=== PATIENT | female | born 1975 | race Caucasian/White ===

== ENCOUNTER 2017-08-08 17:55 | Inpatient (IN) | payer MEDICARE, MEDICAID ==
[2017-08-08] MEDS ORDERED: Iohexol 240 (50 ml) PO ONE (18:24)
--- NOTE | 2017-08-08 18:24 | ED PDOC ---
HPI: Abdomen Time Seen by Provider: 08/08/17 18:09 Chief Complaint (Nursing): Abdominal Pain Chief Complaint (Provider): Abdominal pain Additional Complaint(s): 41 yo F with PMH of HTN, CKD, Hypercholesterolemi, multiple recurrent UTIs and bladder reconstruction (currently with urostomy bag in place), presents to ED with c/o "fecal matter coming out when she surinates." Pt also notes abdominal pain. Symptoms a/w brownish, nonbloody vaginal discharge. Denies fever, chills, dysuria, hematuria, urinary frequency or urgency, vaginal bleeding, chest pain, SOB, n/v/d. PMD: Dr. Macias Past Medical History Reviewed: Historical Data, Nursing Documentation, Vital Signs Vital Signs: Last Vital Signs Temp 97.6 F 08/08/17 17:57 Pulse 99 H 08/08/17 17:57 Resp 16 08/08/17 17:57 BP 136/95 H 08/08/17 17:57 Pulse Ox 100 08/08/17 18:24 - Medical History PMH: Anxiety, Arthritis, HTN, Hypercholesterolemia, Kidney Stones, Chronic Kidney Disease - Surgical History Surgical History: Cholecystectomy Other surgeries: urostomy bag in place, hysterectomy - Family History Family History: States: Unknown Family Hx - Social History Current smoker - smoking cessation education provided: No Alcohol: None Drugs: Denies, Cannabis - Immunization History Hx Tetanus Toxoid Vaccination: Yes Hx Influenza Vaccination: Yes Hx Pneumococcal Vaccination: Yes - Home Medications Home Medications: Ambulatory Orders Medication Instructions Recorded Escitalopram [Lexapro] 20 mg PO DAILY 10/18/15 Furosemide [Lasix] 40 mg PO DAILY 10/18/15 Hydroxychloroquine Sulfate 200 mg PO DAILY 10/18/15 Losartan Potassium 100 mg PO DAILY 10/18/15 MetFORMIN [glucoPHAGE] 1,000 mg PO DAILY 10/18/15 Rosuvastatin Calcium [Crestor] 10 mg PO DAILY 10/18/15 Calcium Carbonate [Caltrate] 600 mg PO BID 08/08/17 Carvedilol [Coreg] 12.5 mg PO Q12H 08/08/17 Cholecalciferol (Vitamin D3) 2,000 unit PO DAILY 08/08/17 [Vitamin D3] Famotidine [Pepcid] 40 mg PO DAILY 08/08/17 Fluticasone/Salmeterol 500/50 1 puff IH TID 08/08/17 [Advair Diskus 500/50] GlipiZIDE [Glucotrol] 5 mg PO BID 08/08/17 Ibuprofen [Motrin Tab] 600 mg PO BID PRN 08/08/17 Mometasone Furoate [Nasonex] 1 spray NING BID PRN 08/08/17 Mycophenolate Mofetil [Cellcept] 1,000 mg PO BID 08/08/17 [id number] Ethyl Esters 1 GM 2 gm PO DAILY 08/08/17 [Lovaza] - Allergies Allergies/Adverse Reactions: Allergies Allergy/AdvReac Type Severity Reaction Status Date / Time No Known Allergies Allergy Verified 01/06/16 20:14 Review of Systems ROS Statement: Except As Marked, All Systems Reviewed And Found Negative Gastrointestinal: Positive for: Abdominal Pain, Diarrhea Physical Exam - Reviewed Nursing Documentation Reviewed: Yes Vital Signs Reviewed: Yes - Physical Exam Appears: Positive for: Non-toxic, No Acute Distress, Uncomfortable Head Exam: Positive for: ATRAUMATIC, NORMAL INSPECTION, NORMOCEPHALIC Skin: Positive for: Normal Color, Warm, DRY Eye Exam: Positive for: EOMI, Normal appearance, PERRL ENT: Positive for: Normal ENT Inspection Neck: Positive for: Normal, Painless ROM Cardiovascular/Chest: Positive for: Regular Rate, Rhythm Respiratory: Positive for: CNT, Normal Breath Sounds Gastrointestinal/Abdominal: Positive for: Bowel Sounds, Soft, Tenderness (Right and LLQ tenderness), Other ((+) urostomy in place RLQ) Back: Positive for: Normal Inspection Extremity: Positive for: Normal ROM Neurologic/Psych: Positive for: Alert, Oriented - ECG O2 Sat by Pulse Oximetry: 100 Medical Decision Making Medical Decision Making: Pt tearful, reports she is in pain IV access established and 4 mg Morphine administered. Diagnostics ordered Case endorsed to MEGHAN Bowling at 1900 pending diagnostic review and re-eval Disposition - Clinical Impression Clinical Impression: Abdominal pain - Patient ED Disposition Is Patient to be Admitted: Transfer of Care - Disposition Disposition: Transfer of Care Disposition Time: 18:35 Condition: STABLE Forms: [employer] (Hebrew)
[2017-08-08] MEDS ORDERED: Morphine 4 MG/ML VIAL ONE ×2 (18:37→21:00)
[2017-08-08 19:06] LABS: BASO % 0.5 % (0.0-2.0); EOS # 0.1 K/uL (0.0-0.7); EOS % 0.6 % (0.0-4.0); HEMATOCRIT 43.3 % (34.0-47.0); LYMPH # 2.4 K/uL (1.0-4.3); LYMPH % 27.2 % (20.0-40.0); MEAN CELL VOLUME 86.2 fl (81.0-99.0); MEAN CORPUSCULAR HEMOGLOBIN 28.6 pg (27.0-31.0); MEAN CORPUSCULAR HGB CONC 33.2 g/dL (33.0-37.0); MEAN PLATELET VOLUME 9.7 fl (7.2-11.7); MONO # 0.7 K/uL (0.0-0.8); MONO % 8.4 % (0.0-10.0); NEUT # 5.7 K/uL (1.8-7.0); NEUT % 63.3 % (50.0-75.0); NRBC % 0.1 % (0.0-0.0); RED CELL DISTRIBUTION WIDTH 13.4 % (11.5-14.5)
[2017-08-08] MEDS ORDERED: Iohexol 240 (50 ml) ONE (19:11)
[2017-08-08 19:13] LABS: RBC URINE 45 /hpf (0-3); URINE BACTERIA MOD (<OCC); URINE BILIRUBIN NEGATIVE (NEGATIVE); URINE BLOOD MODERATE (NEGATIVE); URINE COLOR YELLOW (YELLOW); URINE GLUCOSE (UA) NEG (Normal); URINE KETONE NEGATIVE (NEGATIVE); URINE LEUKOCYTE ESTERASE LARGE Leu/uL (Negative); URINE PROTEIN 100 mg/dL (NEGATIVE); URINE UROBILINOGEN 0.2-1.0 mg/dL (0.2-1.0); WBC URINE 1103 /hpf (0-5)
[2017-08-08 19:17] LABS: ALKALINE PHOSPHATASE 103 U/L (38-126); ALT/SGPT 47 U/L (9-52); AMYLASE 73 U/L (30-110); AST/SGOT 26 U/L (14-36); BILIRUBIN,TOTAL 0.5 mg/dl (0.2-1.3); BLOOD UREA NITROGEN 15 mg/dl (7-17); CALCIUM 9.2 mg/dL (8.4-10.2); CARBON DIOXIDE 23 mmol/L (22-30); CHLORIDE 108 mmol/L (98-107); GFR AFRICAN-AMERICAN > 60; GLUCOSE,RANDOM 129 mg/dL (65-105); LIPASE 105 U/L (23-300); POTASSIUM 3.6 MMOL/L (3.6-5.0); SODIUM 143 mmol/l (132-148); TOTAL PROTEIN 8.3 G/DL (6.3-8.2)
[2017-08-08 19:19] LABS: ALB/GLOB RATIO 1.3 (1.0-2.1)
[2017-08-08] MEDS ORDERED: Iohexol 300 100 ML IJ ONE (20:27)
--- NOTE | 2017-08-08 20:33 | ED PDOC ---
- Laboratory Results Result Diagrams: 08/08/17 19:00 08/08/17 19:00 - ECG O2 Sat by Pulse Oximetry: 100 - Progress ED Course And Treament: 1900 Signed out to me pending CT results. Dr. Macias in ED and states pt. can be admitted to Dr. Mcclure. 2027 On my initial evaluation, pt. requesting more pain meds. In no distress. Pending CT. Morphine 4mg IV ordered. 2237 Pt. reports no relief in pain. Morphine 4mg IV ordered. 2331 CT abd/pelvis w/ IV and PO contrast: Hysterectomy and cystectomy with urinary diversion, no ureteral obstruction; mild right renal pelvic and ureteral mucosal thickening and enhancement suggest infection; possible air in the vagina, a rectovaginal fistula is not visualized. Rocephin 1gm IV ordered. Pt. evaluated by Dr. 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 Pelvic exam showed no stool or vaginal bleeding or lesions. Pt. requesting more pain meds. Morphine 2mg IV ordered. 0140 Case d/w Dr. Mcclure and arrangements made for admission. Medical Decision Making Medical Decision Making: Pt. still with continued pain despite multiple doses of Morphine. Pt. with complicated surgical hx. Pt. recently admitted to [facility] ED for same complaint and symptoms persist. Due to these reasons pt. will be admitted. Disposition - Clinical Impression Clinical Impression: Complicated UTI (urinary tract infection) - POA Present On Arrival: None - Disposition Disposition: Hospitalized as Observation Patient Disposition Time: 01:40 Condition: STABLE
[2017-08-08] MEDS ORDERED: Sodium Chloride 0.9% 1,000 ML IV STA (22:08)
--- NOTE | 2017-08-08 23:32 | CT ---
EXAM: CT Abdomen and Pelvis With Intravenous Contrast EXAM DATE/TIME: 08/08/2017 6:27 PM CLINICAL HISTORY: 42 years old, female; Signs and symptoms; Other: Poss. Rectalvaginal fistula; Prior surgery; Surgery date: 6+ months; Surgery type: Bladder reconstruction, urostomy bag. Hysterectomy. Cholecystectomy; Additional info: Possible rectalvaginal fistula. Sent phy. Doc. TECHNIQUE: Axial computed tomography images of the abdomen and pelvis with intravenous contrast. All CT scans at this facility use one or more dose reduction techniques, viz.: automated exposure control; ma/kV adjustment per patient size (including targeted exams where dose is matched to indication; i.e. head); or iterative reconstruction technique. Coronal and sagittal reformatted images were created and reviewed. CONTRAST: 95 mL of [id number] administered intravenously. COMPARISON: CT ABD AND PELVIS 2013-07-07 23:06 FINDINGS: Lower thorax: The heart size is normal. There is streak artifact from a central line. Lung bases are clear ABDOMEN: Liver: There is fatty infiltration of the liver. Gallbladder and bile ducts: Gallbladder is absent.There is prominence of the common duct. There is mild intrahepatic biliary ductal dilatation or Pancreas: unremarkable Spleen: unremarkable Adrenals: unremarkable Kidneys and ureters: There is bilateral renal scarring. There are nonobstructing renal stones. Stone burden is greatest on the right. There is mild right pelvoureterectasis. There is right renal pelvic and ureteral mucosal thickening and enhancement. There is no mucosal thickening or enhancement in the left renal pelvis or ureter. There is no pelvocaliectasis or ureterectasis. There is urinary diversion. Both ureters can be traced to a fluid filled bowel loop in the pelvis. Stomach and bowel: Stomach is almost empty. There is fluid in the duodenum. Rotation is normal. There are mildly distended small bowel loops in the midabdomen with air-fluid levels. There is an enteral anastomosis in the low pelvis. There is contrast in the distal small bowel. There is no small bowel obstruction. There is contrast in the terminal ileum and cecum. Appendix is unremarkable. There is contrast in the colon to the level of the proximal sigmoid colon. There is air and enteric contents in the sigmoid and rectum. Appendix: See stomach and bowel PELVIS: Bladder: Thick walled bladder seen on the prior study is no longer visualized. Reproductive: There is been interval hysterectomy. There may be a small amount of air in the vagina. ABDOMEN and PELVIS: Intraperitoneal space:There is no free air. Bones/joints: There are no acute osseous abnormalities. Soft tissues: There is a small umbilical hernia. There are postsurgical changes in the lower abdominal wall. Vasculature: Vascular structures are unremarkable. Lymph nodes: There is no pathologic adenopathy. IMPRESSION: Hysterectomy and cystectomy with urinary diversion, no ureteral obstruction; mild right renal pelvic and ureteral mucosal thickening and enhancement suggest infection; possible air in the vagina, a rectovaginal fistula is not visualized Additional findings as described above.
[2017-08-08] MEDS ORDERED: cefTRIAXone IV 1 gm in Dextros 50 ML IVPB STA (23:38)
[2017-08-09] MEDS ORDERED: cefTRIAXone IV 1 gm in Dextros 50 ML IVPB ONE (00:10)
[2017-08-09 07:15] LABS: HEMATOCRIT 37.8 % (34.0-47.0); MEAN CELL VOLUME 86.4 fl (81.0-99.0); MEAN CORPUSCULAR HEMOGLOBIN 29.3 pg (27.0-31.0); RED CELL DISTRIBUTION WIDTH 13.6 % (11.5-14.5); WHITE BLOOD COUNT 6.7 K/uL (4.8-10.8)
[2017-08-09 07:38] LABS: ALB/GLOB RATIO 1.2 (1.0-2.1); ALKALINE PHOSPHATASE 85 U/L (38-126); ALT/SGPT 41 U/L (9-52); AST/SGOT 17 U/L (14-36); BILIRUBIN,TOTAL 0.6 mg/dl (0.2-1.3); BLOOD UREA NITROGEN 14 mg/dl (7-17); CALCIUM 8.7 mg/dL (8.4-10.2); CARBON DIOXIDE 24 mmol/L (22-30); CHLORIDE 110 mmol/L (98-107); CHOLESTEROL 152 mg/dL (0-199); GFR AFRICAN-AMERICAN > 60; GLUCOSE,RANDOM 111 mg/dL (65-105); POTASSIUM 3.5 MMOL/L (3.6-5.0); SODIUM 143 mmol/l (132-148); TOTAL PROTEIN 6.9 G/DL (6.3-8.2)
[2017-08-09 08:06] LABS: THYROID STIMULATING HORMONE 3.09 mIU/ML (0.46-4.68)
--- NOTE | 2017-08-09 09:05 | HP ---
CHIEF COMPLAINT: Abdominal pain. HISTORY OF PRESENT ILLNESS: This is one of many hospital admissions for this 42-year-old female, known case of hypertension, chronic kidney disease, elevated cholesterol, obesity, who had cholecystectomy, hysterectomy and urostomy bag surgery, who recurrently gets urinary tract infection and was recently discharged from [facility], who was having abdominal pain and the patient also complained of stool coming out of vagina, so the patient was brought to the Emergency Room and was admitted for further management. PAST MEDICAL HISTORY: Significant for hypertension, hepatitis, anxiety, elevated cholesterol, kidney stone, chronic kidney disease. PAST SURGICAL HISTORY: Remarkable for urostomy, hysterectomy and cholecystectomy. PERSONAL HISTORY: The patient is currently nonsmoker, nondrinker. No substance abuse. MEDICATIONS: The patient is on Lexapro, Lasix, Plaquenil, losartan, Glucophage, Crestor, Caltrate, Coreg, vitamin D3, Pepcid, Advair, Glucotrol, Motrin, Nasonex, Cellcept and omega-3. ALLERGIES: THE PATIENT IS NOT ALLERGIC TO ANY MEDICATION. FAMILY HISTORY: Noncontributory. REVIEW OF SYSTEMS: Positive for abdominal pain and stool coming out from vagina. Review of systems otherwise is negative for headache, dizziness, syncope, loss of consciousness, chest pain, shortness of breath, nausea, vomiting, diarrhea, constipation, any new joint or extremity pain. Review of systems of all other organ system is unremarkable. PHYSICAL EXAMINATION: GENERAL: Well-built, well-nourished, overweight 42-year-old female, in no acute distress. VITAL SIGNS: Temperature 98.5, pulse 80, respirations 19, blood pressure 125/82, saturation 95%. HEENT: Pupils reacting to light. No JVD. No thyromegaly. No lymphadenopathy. No nystagmus. Normocephalic, atraumatic skull. HEART: S1 and S2. Normal and regular. No significant murmur, gallop or rub is heard. LUNGS: Shows good bilateral air exchange. No rales or rhonchi. ABDOMEN: The patient has right lower quadrant colostomy bag, which is functioning fine. Abdomen has also multiple scars. Abdomen otherwise is soft, nontender. No organomegaly. No fluid. No sign of acute abdomen. No guarding. No rigidity. No rebound. Bowel sounds are plus and normal. No sign of stool coming out of vagina at this time. According to nursing staff, the patient had normal bowel movement and stool was coming out of anal canal, but nothing from vagina. EXTREMITIES: No edema. No calf swelling. No tenderness. No acute ischemia. CENTRAL NERVOUS SYSTEM: The patient is alert, awake, oriented x3. There is no sign of any acute gross focal motor or sensory neurological deficit. DIAGNOSTIC DATA: WBC 9, hemoglobin 14.4, hematocrit 43.3, platelets 242. Sodium 143, potassium 3.8, chloride 108, bicarb 23, BUN 15, creatinine 0.9. SMA-12 is essentially unremarkable. Urinalysis shows large leukocytes, multiple bacteria. EKG does not reveal any acute ST-T changes. Abdominal CAT scan did not reveal any acute evidence of fistula. ADMITTING IMPRESSION: Recurrent urinary tract infections, status post urostomy, hysterectomy and cholecystectomy, anxiety, hypertension, diabetes type 2 with controlled blood sugar, elevated cholesterol, obesity with body mass index of 35. PLAN: As ordered. Case and plan discussed with the patient. Charli Mcclure MD
[2017-08-09] MEDS: Fluticasone-Salmeterol 500-50mcg Diskus IH SCH ×2 (09:11→17:13)
[2017-08-09] MEDS: Enoxaparin 40 mg Syringe SC SCH (09:12)
[2017-08-09] MEDS: Omega-3-Acid Ethyl Esters 1 GM Cap PO SCH (09:13)
[2017-08-09] MEDS: Cholecalciferol 1,000 INTLU TAB PO SCH (09:15)
[2017-08-09] MEDS: cefTRIAXone IV 1 gm in Dextros 50 ML IVPB SCH (12:00)
[2017-08-09] MEDS: Lactobacillus Acidophilus 500 MU Cap PO SCH (17:16)
--- NOTE | 2017-08-09 18:27 | CARD ---
APPROVED REPORT EKG Measurement Heart [id number] <Conclusion> Normal sinus rhythm Normal ECG
--- NOTE | 2017-08-10 08:51 | PN ---
DATE: 08/10/2017 SUBJECTIVE: The patient is seen and examined. Interim events noted. Consults noted and appreciated. Pain Management intervention noted and appreciated. Urology followup, consult is pending. The patient feels better. Pain is controlled. No chest pain. No shortness of breath. PHYSICAL EXAMINATION: GENERAL: The patient is in no acute distress. VITAL SIGNS: Stable. HEART: S1 and S2, normal and regular. LUNGS: Good bilateral air exchange. ABDOMEN: Urostomy tube is in good position and functioning. Abdomen is otherwise soft, nontender. No organomegaly. No fluid. Bowel sounds are plus. No sign of acute abdomen. No guarding. No rigidity. No rebound. EXTREMITIES: No edema. No calf swelling. No tenderness. No acute ischemia. CENTRAL NERVOUS SYSTEM: Essentially unchanged. GENITOURINARY: According to nursing staff, the patient has no stool coming out of vaginal vault. The patient was examined by nurse, Justa Alva. Despite the patient's repeated claim of having stools from vaginal vault, there is no objective evidence of same. DIAGNOSTIC DATA: Available diagnostic data reviewed. ASSESSMENT AND PLAN: Overall, the patient's general medical condition is stable. Plan as ordered. Charli Mcclure MD
[2017-08-10] MEDS: Fluticasone-Salmeterol 500-50mcg Diskus IH SCH ×2 (08:59→17:12)
[2017-08-10] MEDS: Lactobacillus Acidophilus 500 MU Cap PO SCH ×2 (09:00→17:16)
[2017-08-10] MEDS: Omega-3-Acid Ethyl Esters 1 GM Cap PO SCH (09:04)
[2017-08-10] MEDS: Enoxaparin 40 mg Syringe SC SCH (09:05)
[2017-08-10] MEDS: cefTRIAXone IV 1 gm in Dextros 50 ML IVPB SCH (09:08)
[2017-08-10] MEDS: Cholecalciferol 1,000 INTLU TAB PO SCH (09:08)
--- NOTE | 2017-08-11 02:58 | CON ---
DATE: 08/10/2017 urinary diversion with diverting ileostomy done in 09/2016 who now has a complicated UTI. Patient claims that post the urinary diversion, she developed seeing stool in the vagina; however, during this admission, the nurses have not seen any stool in the vagina as of yet. Her abdominopelvic CT scan done on 08/08/2017 showed an absent gallbladder, prominence of the common bile duct, and mild intrahepatic biliary ductal dilatation. Pancreas, spleen, adrenals were all unremarkable. Her kidneys and ureters showed bilateral renal scarring. There are non-obstructing renal stones. Stone burden is greatest on the right. There is mild right pyeloureterectasis. There is right renal pelvic and ureteral mucosal thickening and enhancement. There is no mucosal thickening or enhancement in the left renal pelvis or ureter. There is no pelvocaliectasis or ureterectasis. There is urinary diversion. Both ureters can be traced with fluid filled bowel loop in the pelvis. The stomach and bowel showed an almost empty stomach. There was fluid in the duodenum. Rotation was normal. There are mildly distended bowel loops in the mid abdomen with air-fluid levels. There is an antral anastomosis in the lower pelvis. There is contrast in the distal small bowel. There is no small bowel obstruction. There is contrast in the terminal ileum and cecum. Appendix is unremarkable. There is contrast in the colon to the level of the proximal sigmoid colon. There is air and enteric contents in the sigmoid and rectum. Thick gallbladder seen on prior study was no longer visualized. Reproductive system, status post internal hysterectomy. There is a small amount of air in the vagina. Intraperitoneal space, no free air. Along the joints, no acute osseous abnormalities. Lymph nodes, no pathology. Soft tissues, there is a small umbilical hernia. Post surgical changes in the lower abdominal wall. Diagnostic impression to the study was hysterectomy and cystectomy with urinary diversion, no ureteral obstruction, mild right renal pelvic and ureteral mucosal thickening and enhancement, suggest infection. Possible air in the vagina. Rectovaginal fistula is not visualized and non-obstructing kidney stones, pertinent greatest on the right. ADDITIONAL MEDICAL HISTORY: Patient has hypertension and diabetes mellitus in addition to SLE and she has had four surgeries includin. Laparoscopic cholecystectomy. 2. Hysterectomy in 2014. 3. Bladder replacement surgery with colon in 2014. 4. Urinary diverting ileostomy in 09/2016. All surgeries seem to have been done at [facility]. The patient has also been seen multiple times at [facility], [facility], [facility], [facility], and [facility] requiring pain medication during these hospitalizations. The patient is currently being treated for a complicated UTI. A Urinalysis on 08/08/2017 was positive for rbc's 45, positive for wbc's 1103, and positive for moderate bacteria. pH is 7.0 and specific gravity 1.012. Patient at the bedside today seem to be relatively comfortable and her main complaint was seeing stool in the vagina. Patient denies any history of any pregnancies.. She is 0, para 0. PHYSICAL EXAMINATION: GENERAL: Today, she is a well-developed, well-nourished, slightly obese female, she is alert, she is oriented. HEENT: Grossly within normal limits. NECK: Supple. Thyroid not palpable. ABDOMEN: Soft, nondistended, currently nontender. LABORATORY EVALUATION: On 08/09/2017 showed a CBC with a WBC count of 6.7, hemoglobin of 12.8, hematocrit of 37.8, and a platelet count of 173,000. Her chem profile shows a sodium of 143, potassium 3.5, chloride 110, CO2 of 24, BUN and creatinine of 14 and 0.7 respectively with a GFR of greater than 60. Random glucose is 111. Calcium is 8.7. Otherwise, a relatively normal comprehensive metabolic profile. Urinalysis on 08/08/2017 showed multiple species and suggest repeat specimen. UROLOGIC DIAGNOSES: 1. Complicated urinary tract infection. 2. Bilateral non-obstructing kidney stones. PLAN: 1. To just treat her complicated urinary tract infection at this time. 2. Suggest the patient followup at [facility] with her surgeons regarding her visualization of stool in the vagina and urinary diversion and kidney stones. Ernie Murdock MD
[2017-08-11 07:24] LABS: HEMATOCRIT 38.1 % (34.0-47.0); MEAN CELL VOLUME 85.9 fl (81.0-99.0); MEAN CORPUSCULAR HEMOGLOBIN 29.3 pg (27.0-31.0); MEAN CORPUSCULAR HGB CONC 34.1 g/dL (33.0-37.0); RED CELL DISTRIBUTION WIDTH 13.5 % (11.5-14.5)
[2017-08-11 07:49] LABS: ALB/GLOB RATIO 1.2 (1.0-2.1); ALKALINE PHOSPHATASE 80 U/L (38-126); ALT/SGPT 29 U/L (9-52); AST/SGOT 15 U/L (14-36); BILIRUBIN,TOTAL 0.4 mg/dl (0.2-1.3); BLOOD UREA NITROGEN 13 mg/dl (7-17); CALCIUM 8.9 mg/dL (8.4-10.2); CARBON DIOXIDE 29 mmol/L (22-30); CHLORIDE 104 mmol/L (98-107); GFR AFRICAN-AMERICAN > 60; GLUCOSE,RANDOM 113 mg/dL (65-105); POTASSIUM 2.8 MMOL/L (3.6-5.0); SODIUM 140 mmol/l (132-148); TOTAL PROTEIN 6.8 G/DL (6.3-8.2)
[2017-08-11] MEDS: Omega-3-Acid Ethyl Esters 1 GM Cap PO SCH (08:58)
[2017-08-11] MEDS: Fluticasone-Salmeterol 500-50mcg Diskus IH SCH ×3 (08:58→17:23)
[2017-08-11] MEDS: Enoxaparin 40 mg Syringe SC SCH (08:59)
[2017-08-11] MEDS: Cholecalciferol 1,000 INTLU TAB PO SCH (09:02)
[2017-08-11] MEDS: Lactobacillus Acidophilus 500 MU Cap PO SCH ×2 (09:06→17:23)
[2017-08-11] MEDS: cefTRIAXone IV 1 gm in Dextros 50 ML IVPB SCH (11:27)
[2017-08-12 06:35] LABS: ALB/GLOB RATIO 1.1 (1.0-2.1); ALKALINE PHOSPHATASE 83 U/L (38-126); ALT/SGPT 28 U/L (9-52); AST/SGOT 15 U/L (14-36); BILIRUBIN,TOTAL 0.3 mg/dl (0.2-1.3); BLOOD UREA NITROGEN 15 mg/dl (7-17); CALCIUM 9.1 mg/dL (8.4-10.2); CARBON DIOXIDE 30 mmol/L (22-30); CHLORIDE 105 mmol/L (98-107); GFR AFRICAN-AMERICAN > 60; GLUCOSE,RANDOM 115 mg/dL (65-105); POTASSIUM 3.1 MMOL/L (3.6-5.0); SODIUM 145 mmol/l (132-148)
[2017-08-12 06:43] LABS: MEAN CELL VOLUME 86.1 fl (81.0-99.0); MEAN CORPUSCULAR HGB CONC 33.7 g/dL (33.0-37.0); RED CELL DISTRIBUTION WIDTH 13.7 % (11.5-14.5); WHITE BLOOD COUNT 5.9 K/uL (4.8-10.8)
--- NOTE | 2017-08-12 09:03 | PN ---
DATE: 08/12/2017 SUBJECTIVE: The patient is seen and examined. Interim events noted. The patient remains in regular medical floor. The patient feels okay. The patient complains of passing stool through vagina, but there is no objective evidence of same. Every bowel movement observed by nurses came through rectum. PHYSICAL EXAMINATION: GENERAL: The patient is in no acute distress. VITAL SIGNS: Stable. HEART: S1 and S2, normal and regular. LUNGS: Good bilateral air exchange. ABDOMEN: Soft, nontender. EXTREMITIES: No edema. No calf swelling. No tenderness. No acute ischemia. CENTRAL NERVOUS SYSTEM: Essentially unchanged. DIAGNOSTIC DATA: Available diagnostic data reviewed. ASSESSMENT AND PLAN: Overall, the patient's general medical condition is stable. Urine culture shows contamination. Plan as ordered. Charli Mcclure MD
--- NOTE | 2017-08-12 09:13 | PN ---
DATE: 08/11/2017 SUBJECTIVE: Patient seen and examined. Interim events noted. Consults noted and appreciated. Urology followup and intervention noted and appreciated. Patient remains in regular medical floor. Patient feels okay. Pain is adequately controlled, now taking morphine every 6 hours. Denies any other new complaint of chest pain or shortness of breath. Did not complain of vaginal stool discharge today. PHYSICAL EXAMINATION: GENERAL: Patient is in no acute distress. VITAL SIGNS: Stable. HEART: S1 and S2, normal and regular. LUNGS: Good bilateral air exchange. ABDOMEN: Soft, nontender. Does not reveal any acute abdomen. No guarding. No rigidity. No rebound. Urostomy tube is in good position and functioning. EXTREMITIES: No edema. No calf swelling. No tenderness. No acute ischemia. CENTRAL NERVOUS SYSTEM: Essentially unchanged. DIAGNOSTIC DATA: Available diagnostic data reviewed. ASSESSMENT AND PLAN: Overall, patient's general medical condition is stable. Plan as ordered. Charli Mcclure MD
[2017-08-12] MEDS: Omega-3-Acid Ethyl Esters 1 GM Cap PO SCH (09:54)
[2017-08-12] MEDS: Fluticasone-Salmeterol 500-50mcg Diskus IH SCH ×2 (09:54→16:19)
[2017-08-12] MEDS: Lactobacillus Acidophilus 500 MU Cap PO SCH ×2 (09:56→16:23)
--- NOTE | 2017-08-12 09:57 | PQF GENQUE ---
This form is a permanent part of the medical record 08/12/17 Dr. Mcclure, H&P with documentation of Chronic Kidney Disease ( no stage documented) . BUN 13 -15, Creatinine 0.9-0.7, GFR >60. Please clarify status of this condition: Patient has condition Condition was ruled out Please provide corresponding diagnosis for patient's clinical picture and associated treatment Patient had condition which is now resolved Other (please specify) Clinically unable to determine Unknown Clarification of your documentation is requested to better reflect the severity of illness and intensity of treatment of your patient. Indicators present [] Specify: [] [] Specify: [] [] Specify: [] [] Specify: [] Location in the medical record that reflects the above clinical findings: [] Treatment Provided: [] PHYSICIAN'S RESPONSE Based on your medical judgment of the clinical indicators outlined above please clarify the following: [] Practitioner response [] If unable to determine, please check the box, sign and date. Present On Admission (POA) Indicator: [] Present at the time of admission [] Not present at the time of admission [] Clinically Undetermined In responding to this query, please exercise your independent professional judgment. The fact that a question is asked does not imply that any particular answer is desired or expected. Thank you for your clarification on this documentation. If you have any questions please call:[phone] * Thank you, Aysha Rose RN [facility]
[2017-08-12] MEDS: Enoxaparin 40 mg Syringe SC SCH (09:59)
[2017-08-12] MEDS: Cholecalciferol 1,000 INTLU TAB PO SCH (10:00)
[2017-08-12] MEDS: cefTRIAXone IV 1 gm in Dextros 50 ML IVPB SCH (10:53)
--- NOTE | 2017-08-12 11:24 | CP.PCM.CON ---
History of Present Illness - History of Present Illness History of Present Illness: 41 yo F with PMH of HTN, CKD, Hypercholesterolemi, multiple recurrent UTIs and bladder reconstruction (currently with urostomy bag in place), presents to ED with c/o "fecal matter coming out when she surinates." Pt also notes abdominal pain. Symptoms a/w brownish, nonbloody vaginal discharge. Denies fever, chills, dysuria, hematuria, urinary frequency or urgency, vaginal bleeding, chest pain, SOB, n/v/d. multiple admissions with esbl + E coli in 2016 currently afebrile - Medical History PMH: Anxiety, Arthritis, HTN, Hypercholesterolemia, Kidney Stones, Chronic Kidney Disease - Surgical History Surgical History: Cholecystectomy Other surgeries: urostomy bag in place, hysterectomy Past Patient History - Infectious Disease Hx of Infectious Diseases: None - Past Medical History & Family History Past Medical History?: Yes - Past Social History Smoking Status: Never Smoked - CARDIAC Hx Hypercholesterolemia: Yes Hx Hypertension: Yes - PULMONARY Hx Respiratory Disorders: No - NEUROLOGICAL Hx Neurological Disorder: Yes - HEENT Hx HEENT Problems: No - RENAL Hx Chronic Kidney Disease: Yes Other/Comment: urostomy tube in place - ENDOCRINE/METABOLIC Hx Endocrine Disorders: Yes Hx Systemic Lupus Erythematosus: Yes - HEMATOLOGICAL/ONCOLOGICAL Hx Blood Disorders: No - INTEGUMENTARY Hx Dermatological Problems: No - MUSCULOSKELETAL/RHEUMATOLOGICAL Hx Musculoskeletal Disorders: Yes Hx Arthritis: Yes Hx Falls: No - GASTROINTESTINAL Hx Gastrointestinal Disorders: No - GENITOURINARY/GYNECOLOGICAL Hx Genitourinary Disorders: Yes Hx Urinary Tract Infection: Yes Other/Comment: bladder reconstruction with urostomy bag currently in place - PSYCHIATRIC Hx Psychophysiologic Disorder: Yes Hx Anxiety: Yes Hx Substance Use: No - SURGICAL HISTORY Hx Cholecystectomy: Yes Other/Comment: bladder reconstruction - ANESTHESIA Hx Anesthesia: Yes Hx Anesthesia Reactions: No Hx Malignant Hyperthermia: No Meds Allergies/Adverse Reactions: Allergies Allergy/AdvReac Type Severity Reaction Status Date / Time No Known Allergies Allergy Verified 01/06/16 20:14 - Medications Medications: Current Medications Acetaminophen (Tylenol 325mg Tab) 650 mg PO Q4 PRN PRN Reason: Pain, moderate (4-7) Atorvastatin Calcium (Lipitor) 20 mg PO HS [facility] Last Admin: 08/11/17 21:34 Dose: 20 mg Calcium Carbonate (Oscal) 500 mg PO BID [facility] Last Admin: 08/12/17 09:59 Dose: 500 mg Carvedilol (Coreg) 12.5 mg PO Q12 [facility] Last Admin: 08/12/17 09:56 Dose: 12.5 mg Cholecalciferol (Vitamin D) 2,000 intlu PO DAILY [facility] Last Admin: 08/12/17 10:00 Dose: 2,000 intlu Enoxaparin Sodium (Lovenox) 40 mg SC DAILY [facility] PRN Reason: Protocol Last Admin: 08/12/17 09:59 Dose: 40 mg Escitalopram Oxalate (Lexapro) 20 mg PO HS [facility] Last Admin: 08/11/17 21:34 Dose: 20 mg Famotidine (Pepcid) 40 mg PO DAILY [facility] Last Admin: 08/12/17 09:55 Dose: 40 mg Fluticasone Propionate (Flonase) 1 spr NING BID PRN PRN Reason: Allergy symptoms Furosemide (Lasix) 40 mg PO DAILY [facility] Last Admin: 08/12/17 09:58 Dose: 40 mg Glipizide (Glucotrol) 5 mg PO BID [facility] Last Admin: 08/12/17 09:54 Dose: 5 mg Hydroxychloroquine Sulfate (Plaquenil) 200 mg PO BID [facility] Last Admin: 08/12/17 10:00 Dose: 200 mg Ceftriaxone Sodium (Rocephin Iv 1 Gm Duplex) 50 mls @ 50 mls/hr IVPB DAILY [facility] PRN Reason: Protocol Last Admin: 08/12/17 10:53 Dose: 50 mls/hr Ibuprofen (Motrin Tab) 600 mg PO BID PRN PRN Reason: Pain, moderate (4-7) Lactobacillus Acidophilus (Bacid Acidophilus) 1 cap PO BID [facility] Last Admin: 08/12/17 09:56 Dose: 1 cap Losartan Potassium (Cozaar) 100 mg PO DAILY [facility] Last Admin: 08/12/17 09:57 Dose: 100 mg Metformin HCl (Glucophage) 1,000 mg PO DAILY [facility] Last Admin: 08/12/17 09:58 Dose: 1,000 mg Morphine Sulfate (Morphine) 2 mg IVP Q6 PRN PRN Reason: Pain, severe (8-10) Last Admin: 08/12/17 06:21 Dose: 2 mg Mycophenolate Mofetil (Cellcept Cap) 1,000 mg PO BID [facility] Last Admin: 08/12/17 09:56 Dose: 1,000 mg Wwnwn-5-Vhil Ethyl Esters (Lovaza) 2 gm PO DAILY [facility] Last Admin: 08/12/17 09:54 Dose: 2 gm Fluticasone/Salmeterol (Advair Diskus 500/50) 1 puff IH BID [facility] Last Admin: 08/12/17 09:54 Dose: Not Given Results - Vital Signs Recent Vital Signs: Last Vital Signs Temp 97.8 F 08/12/17 09:00 Pulse 68 08/12/17 09:57 Resp 20 08/12/17 09:00 BP 100/69 08/12/17 09:58 Pulse Ox 96 08/12/17 09:00 - Labs Result Diagrams: 08/12/17 06:00 08/12/17 06:00 Labs: Laboratory Results - last 24 hr 08/11/17 08/11/17 08/12/17 16:08 22:27 06:00 WBC 5.9 RBC 4.53 Hgb 13.1 Hct 39.0 MCV 86.1 MCH 29.0 MCHC 33.7 RDW 13.7 Plt Count 192 Sodium Potassium Chloride Carbon Dioxide Anion Gap BUN Creatinine Est GFR ( Amer) Est GFR (Non-Af Amer) POC Glucose (mg/dL) 141 H 114 H Random Glucose Calcium Total Bilirubin AST ALT Alkaline Phosphatase Total Protein Albumin Globulin Albumin/Globulin Ratio 08/12/17 08/12/17 08/12/17 06:00 06:29 11:09 WBC RBC Hgb Hct MCV MCH MCHC RDW Plt Count Sodium 145 Potassium 3.1 L Chloride 105 Carbon Dioxide 30 Anion Gap 13 BUN 15 Creatinine 0.7 Est GFR ( Amer) > 60 Est GFR (Non-Af Amer) > 60 POC Glucose (mg/dL) 106 171 H Random Glucose 115 H Calcium 9.1 Total Bilirubin 0.3 AST 15 ALT 28 Alkaline Phosphatase 83 Total Protein 7.0 Albumin 3.7 Globulin 3.3 Albumin/Globulin Ratio 1.1
[2017-08-12] MEDS: Meropenem 500 MG in Sodium Chloride 0.9% 100 ML IVPB SCH ×2 (14:15→16:40)
[2017-08-12] MEDS: Potassium Chloride 20 mEq ER Tab PO SCH (16:23)
[2017-08-12 20:10] LABS: RBC URINE 18 /hpf (0-3); URINE BACTERIA FEW (<OCC); URINE BILIRUBIN NEGATIVE (NEGATIVE); URINE BLOOD MODERATE (NEGATIVE); URINE CALCIUM OXALATE CRYSTALS RARE /hpf (<OCC); URINE COLOR STRAW (YELLOW); URINE GLUCOSE (UA) NEG (Normal); URINE KETONE NEGATIVE (NEGATIVE); URINE LEUKOCYTE ESTERASE LARGE Leu/uL (Negative); URINE PROTEIN NEGATIVE (NEGATIVE); URINE UROBILINOGEN 0.2-1.0 mg/dL (0.2-1.0); WBC URINE 90 /hpf (0-5)
[2017-08-13] MEDS: Meropenem 500 MG in Sodium Chloride 0.9% 100 ML IVPB SCH ×3 (00:04→16:11)
[2017-08-13] MEDS: Lactobacillus Acidophilus 500 MU Cap PO SCH ×2 (08:49→16:06)
[2017-08-13] MEDS: Fluticasone-Salmeterol 500-50mcg Diskus IH SCH ×2 (08:49→16:09)
[2017-08-13] MEDS: Omega-3-Acid Ethyl Esters 1 GM Cap PO SCH (08:50)
[2017-08-13] MEDS: Enoxaparin 40 mg Syringe SC SCH (08:51)
[2017-08-13] MEDS: Cholecalciferol 1,000 INTLU TAB PO SCH (08:52)
[2017-08-13] MEDS: Potassium Chloride 20 mEq ER Tab PO SCH ×2 (08:54→16:09)
--- NOTE | 2017-08-13 09:08 | CP.PCM.PN ---
Subjective - Date & Time of Evaluation Date of Evaluation: 08/13/17 Time of Evaluation: 07:40 - Subjective Subjective: Patient seen and examined with Dr Ren angel. Pt reports feeling better. she denies fever, dysuria, nausea, vomiting, abd pain, flank pain. Objective - Vital Signs/Intake and Output Vital Signs (last 24 hours): Temp Pulse Resp BP Pulse Ox 98.4 F 102 H 20 98/63 L 98 08/13/17 08:02 08/13/17 08:02 08/13/17 08:02 08/13/17 08:54 08/13/17 08:02 Intake and Output: 08/13/17 08/13/17 06:59 18:59 Intake Total 340 Output Total 1100 Balance -760 - Medications Medications: Current Medications Acetaminophen (Tylenol 325mg Tab) 650 mg PO Q4 PRN PRN Reason: Pain, moderate (4-7) Atorvastatin Calcium (Lipitor) 20 mg PO HS [facility] Last Admin: 08/12/17 21:28 Dose: 20 mg Calcium Carbonate (Oscal) 500 mg PO BID [facility] Last Admin: 08/13/17 08:51 Dose: 500 mg Carvedilol (Coreg) 12.5 mg PO Q12 [facility] Last Admin: 08/13/17 08:55 Dose: Not Given Cholecalciferol (Vitamin D) 2,000 intlu PO DAILY [facility] Last Admin: 08/13/17 08:52 Dose: 2,000 intlu Enoxaparin Sodium (Lovenox) 40 mg SC DAILY [facility] PRN Reason: Protocol Last Admin: 08/13/17 08:51 Dose: 40 mg Escitalopram Oxalate (Lexapro) 20 mg PO [facility] Last Admin: 08/12/17 21:27 Dose: 20 mg Famotidine (Pepcid) 40 mg PO DAILY [facility] Last Admin: 08/13/17 08:52 Dose: 40 mg Fluticasone Propionate (Flonase) 1 spr NING BID PRN PRN Reason: Allergy symptoms Furosemide (Lasix) 40 mg PO DAILY [facility] Last Admin: 08/13/17 08:54 Dose: Not Given Glipizide (Glucotrol) 5 mg PO BID [facility] Last Admin: 08/13/17 08:54 Dose: 5 mg Hydroxychloroquine Sulfate (Plaquenil) 200 mg PO BID [facility] Last Admin: 08/13/17 08:53 Dose: 200 mg Meropenem 500 mg/ Sodium (Chloride) 100 mls @ 100 mls/hr IVPB Q8 [facility] PRN Reason: Protocol Last Admin: 08/13/17 08:50 Dose: 100 mls/hr Ibuprofen (Motrin Tab) 600 mg PO BID PRN PRN Reason: Pain, moderate (4-7) Lactobacillus Acidophilus (Bacid Acidophilus) 1 cap PO BID [facility] Last Admin: 08/13/17 08:49 Dose: 1 cap Losartan Potassium (Cozaar) 100 mg PO DAILY [facility] Last Admin: 08/13/17 08:55 Dose: Not Given Metformin HCl (Glucophage) 1,000 mg PO DAILY [facility] Last Admin: 08/13/17 08:55 Dose: 1,000 mg Morphine Sulfate (Morphine) 2 mg IVP Q6 PRN PRN Reason: Pain, severe (8-10) Last Admin: 08/13/17 05:41 Dose: 2 mg Mycophenolate Mofetil (Cellcept Cap) 1,000 mg PO BID [facility] Last Admin: 08/13/17 08:50 Dose: 1,000 mg Kuobq-2-Biue Ethyl Esters (Lovaza) 2 gm PO DAILY [facility] Last Admin: 08/13/17 08:50 Dose: 2 gm Potassium Chloride (K-Dur 20 Meq Er Tab) 20 meq PO BID [facility] Last Admin: 08/13/17 08:54 Dose: 20 meq Fluticasone/Salmeterol (Advair Diskus 500/50) 1 puff IH BID [facility] Last Admin: 08/13/17 08:49 Dose: 1 puff Zolpidem Tartrate (Ambien) 5 mg PO HS PRN PRN Reason: Sleep Last Admin: 08/12/17 22:53 Dose: 5 mg - Labs Labs: 08/12/17 06:00 08/12/17 06:00 - Constitutional Appears: Non-toxic, No Acute Distress - Eye Exam Eye Exam: Normal appearance - Neck Exam Neck Exam: Normal Inspection - Respiratory Exam Respiratory Exam: Clear to Ausculation Bilateral. absent: Rales, Wheezes - Cardiovascular Exam Cardiovascular Exam: REGULAR RHYTHM, +S1, +S2 - GI/Abdominal Exam GI & Abdominal Exam: Soft, Normal Bowel Sounds. absent: Tenderness, Rebound - Extremities Exam Extremities Exam: Normal Inspection. absent: Pedal Edema - Neurological Exam Neurological Exam: Alert, Awake, Oriented x3 - Skin Skin Exam: Intact, Normal Color Assessment and Plan (1) Complicated UTI (urinary tract infection) Assessment & Plan: recurrent UTI Hx/o bladder reconstruction ( urostomy bag in place ) -Id consult appreciated -Urine cx contaminated -on meropenen Status: Acute (2) Diabetes Assessment & Plan: c/w glipizide Status: Acute (3) Hyperlipidemia Status: Acute (4) Hypertension Assessment & Plan: c/w carvedidol, losartan Status: Acute (5) DVT prophylaxis Assessment & Plan: lovenox 40 mg sc Status: Acute
[2017-08-13 11:52] LABS: BLOOD UREA NITROGEN 16 mg/dl (7-17); CALCIUM 9.1 mg/dL (8.4-10.2); CARBON DIOXIDE 27 mmol/L (22-30); CHLORIDE 107 mmol/L (98-107); GFR AFRICAN-AMERICAN > 60; GLUCOSE,RANDOM 119 mg/dL (65-105); POTASSIUM 3.5 MMOL/L (3.6-5.0); SODIUM 145 mmol/l (132-148)
[2017-08-14] MEDS: Meropenem 500 MG in Sodium Chloride 0.9% 100 ML IVPB SCH ×3 (00:37→17:30)
[2017-08-14 06:23] LABS: HEMATOCRIT 39.7 % (34.0-47.0); MEAN CELL VOLUME 86.6 fl (81.0-99.0); MEAN CORPUSCULAR HEMOGLOBIN 28.5 pg (27.0-31.0); MEAN CORPUSCULAR HGB CONC 32.9 g/dL (33.0-37.0); WHITE BLOOD COUNT 5.5 K/uL (4.8-10.8)
[2017-08-14 06:34] LABS: ALB/GLOB RATIO 1.2 (1.0-2.1); ALKALINE PHOSPHATASE 79 U/L (38-126); ALT/SGPT 33 U/L (9-52); AST/SGOT 14 U/L (14-36); BILIRUBIN,TOTAL 0.4 mg/dl (0.2-1.3); BLOOD UREA NITROGEN 16 mg/dl (7-17); CARBON DIOXIDE 27 mmol/L (22-30); CHLORIDE 107 mmol/L (98-107); GFR AFRICAN-AMERICAN > 60; GLUCOSE,RANDOM 67 mg/dL (65-105); POTASSIUM 3.6 MMOL/L (3.6-5.0); SODIUM 144 mmol/l (132-148); TOTAL PROTEIN 6.9 G/DL (6.3-8.2)
[2017-08-14] MEDS: Fluticasone-Salmeterol 500-50mcg Diskus IH SCH ×2 (09:00→17:38)
[2017-08-14] MEDS: Omega-3-Acid Ethyl Esters 1 GM Cap PO SCH (09:00)
[2017-08-14] MEDS: Enoxaparin 40 mg Syringe SC SCH (09:00)
[2017-08-14] MEDS: Potassium Chloride 20 mEq ER Tab PO SCH ×2 (09:01→17:40)
[2017-08-14] MEDS: Lactobacillus Acidophilus 500 MU Cap PO SCH ×2 (09:09→17:38)
--- NOTE | 2017-08-14 09:21 | CP.PCM.PN ---
Subjective - Date & Time of Evaluation Date of Evaluation: 08/14/17 Time of Evaluation: 07:20 - Subjective Subjective: Patient seen and examined with Dr Ren angel. Pt reports feeling better. she denies fever, dysuria, nausea, vomiting, abd pain, flank pain. no overnight events. RLQ urostomy cdi; draining clear yellow urine Objective - Vital Signs/Intake and Output Vital Signs (last 24 hours): Temp Pulse Resp BP Pulse Ox 97.9 F 79 20 108/73 98 08/14/17 08:11 08/14/17 09:01 08/14/17 08:11 08/14/17 09:01 08/14/17 08:11 Intake and Output: 08/14/17 08/14/17 06:59 18:59 Intake Total 400 Output Total 800 Balance -400 - Medications Medications: Current Medications Acetaminophen (Tylenol 325mg Tab) 650 mg PO Q4 PRN PRN Reason: Pain, moderate (4-7) Atorvastatin Calcium (Lipitor) 20 mg PO HS [facility] Last Admin: 08/13/17 22:28 Dose: 20 mg Calcium Carbonate (Oscal) 500 mg PO BID [facility] Last Admin: 08/14/17 09:05 Dose: 500 mg Carvedilol (Coreg) 12.5 mg PO Q12 [facility] Last Admin: 08/14/17 09:01 Dose: 12.5 mg Cholecalciferol (Vitamin D) 2,000 intlu PO DAILY [facility] Last Admin: 08/13/17 08:52 Dose: 2,000 intlu Enoxaparin Sodium (Lovenox) 40 mg SC DAILY [facility] PRN Reason: Protocol Last Admin: 08/14/17 09:00 Dose: 40 mg Escitalopram Oxalate (Lexapro) 20 mg PO HS [facility] Last Admin: 08/13/17 22:28 Dose: 20 mg Famotidine (Pepcid) 40 mg PO DAILY [facility] Last Admin: 08/14/17 09:00 Dose: 40 mg Fluticasone Propionate (Flonase) 1 spr NING BID PRN PRN Reason: Allergy symptoms Furosemide (Lasix) 40 mg PO DAILY [facility] Last Admin: 08/14/17 09:01 Dose: 40 mg Glipizide (Glucotrol) 5 mg PO BID [facility] Last Admin: 08/14/17 09:02 Dose: 5 mg Hydroxychloroquine Sulfate (Plaquenil) 200 mg PO BID [facility] Last Admin: 08/14/17 09:01 Dose: 200 mg Meropenem 500 mg/ Sodium (Chloride) 100 mls @ 100 mls/hr IVPB Q8 [facility] PRN Reason: Protocol Last Admin: 08/14/17 00:37 Dose: 100 mls/hr Ibuprofen (Motrin Tab) 600 mg PO BID PRN PRN Reason: Pain, moderate (4-7) Lactobacillus Acidophilus (Bacid Acidophilus) 1 cap PO BID [facility] Last Admin: 08/14/17 09:09 Dose: 1 cap Losartan Potassium (Cozaar) 100 mg PO DAILY [facility] Last Admin: 08/14/17 09:00 Dose: 100 mg Metformin HCl (Glucophage) 1,000 mg PO DAILY [facility] Last Admin: 08/14/17 09:01 Dose: 1,000 mg Morphine Sulfate (Morphine) 2 mg IVP Q6 PRN PRN Reason: Pain, severe (8-10) Last Admin: 08/14/17 06:16 Dose: 2 mg Mycophenolate Mofetil (Cellcept Cap) 1,000 mg PO BID [facility] Last Admin: 08/14/17 09:00 Dose: 1,000 mg Nggbs-3-Erto Ethyl Esters (Lovaza) 2 gm PO DAILY [facility] Last Admin: 08/14/17 09:00 Dose: 2 gm Potassium Chloride (K-Dur 20 Meq Er Tab) 20 meq PO BID [facility] Last Admin: 08/14/17 09:01 Dose: 20 meq Fluticasone/Salmeterol (Advair Diskus 500/50) 1 puff IH BID [facility] Last Admin: 08/14/17 09:00 Dose: Not Given Zolpidem Tartrate (Ambien) 5 mg PO HS PRN PRN Reason: Sleep Last Admin: 08/13/17 23:19 Dose: 5 mg - Labs Labs: 08/14/17 05:30 08/14/17 05:30 - Constitutional Appears: Non-toxic, No Acute Distress - Head Exam Head Exam: ATRAUMATIC, NORMOCEPHALIC - Eye Exam Eye Exam: Normal appearance - ENT Exam ENT Exam: Normal Exam - Neck Exam Neck Exam: Normal Inspection - Respiratory Exam Respiratory Exam: Clear to Ausculation Bilateral. absent: Rales, Rhonchi, Wheezes - Cardiovascular Exam Cardiovascular Exam: REGULAR RHYTHM, +S1, +S2 - GI/Abdominal Exam GI & Abdominal Exam: Soft, Normal Bowel Sounds. absent: Tenderness Additional comments: RLQ urostomy cdi; draining clear yellow urine - Extremities Exam Extremities Exam: Normal Inspection. absent: Tenderness - Neurological Exam Neurological Exam: Alert, Awake, Oriented x3 - Psychiatric Exam Psychiatric exam: Normal Mood - Skin Skin Exam: Dry, Intact Assessment and Plan (1) Complicated UTI (urinary tract infection) Status: Acute (2) Diabetes Status: Acute (3) Hyperlipidemia Status: Acute (4) Hypertension Status: Acute (5) DVT prophylaxis Status: Acute - Assessment and Plan (Free Text) Plan: Assessment and Plan (1) Complicated UTI (urinary tract infection) -continue abx meropenen -ID consult appreciated -waiting Urine cx results Status: Acute (2) Diabetes Status: Acute (3) Hyperlipidemia Status: Acute (4) Hypertension Status: Acute (5) DVT prophylaxis -lovenox Status: Acute
[2017-08-14] MEDS: Cholecalciferol 1,000 INTLU TAB PO SCH (11:39)
--- NOTE | 2017-08-14 13:00 | CP.PCM.PN ---
Subjective - Date & Time of Evaluation Date of Evaluation: 08/14/17 Time of Evaluation: 09:00 - Subjective Subjective: afebrile NAD rx in progress Objective - Vital Signs/Intake and Output Vital Signs (last 24 hours): Temp Pulse Resp BP Pulse Ox 97.9 F 79 20 108/73 98 08/14/17 08:11 08/14/17 09:01 08/14/17 08:11 08/14/17 09:01 08/14/17 08:11 Intake and Output: 08/14/17 08/14/17 06:59 18:59 Intake Total 400 Output Total 800 Balance -400 - Medications Medications: Current Medications Acetaminophen (Tylenol 325mg Tab) 650 mg PO Q4 PRN PRN Reason: Pain, moderate (4-7) Atorvastatin Calcium (Lipitor) 20 mg PO HS [facility] Last Admin: 08/13/17 22:28 Dose: 20 mg Calcium Carbonate (Oscal) 500 mg PO BID [facility] Last Admin: 08/14/17 09:05 Dose: 500 mg Carvedilol (Coreg) 12.5 mg PO Q12 [facility] Last Admin: 08/14/17 09:01 Dose: 12.5 mg Cholecalciferol (Vitamin D) 2,000 intlu PO DAILY [facility] Last Admin: 08/14/17 11:39 Dose: 2,000 intlu Enoxaparin Sodium (Lovenox) 40 mg SC DAILY [facility] PRN Reason: Protocol Last Admin: 08/14/17 09:00 Dose: 40 mg Escitalopram Oxalate (Lexapro) 20 mg PO HS [facility] Last Admin: 08/13/17 22:28 Dose: 20 mg Famotidine (Pepcid) 40 mg PO DAILY [facility] Last Admin: 08/14/17 09:00 Dose: 40 mg Fluticasone Propionate (Flonase) 1 spr NING BID PRN PRN Reason: Allergy symptoms Furosemide (Lasix) 40 mg PO DAILY [facility] Last Admin: 08/14/17 09:01 Dose: 40 mg Glipizide (Glucotrol) 5 mg PO BID [facility] Last Admin: 08/14/17 09:02 Dose: 5 mg Hydroxychloroquine Sulfate (Plaquenil) 200 mg PO BID [facility] Last Admin: 08/14/17 09:01 Dose: 200 mg Meropenem 500 mg/ Sodium (Chloride) 100 mls @ 100 mls/hr IVPB Q8 [facility] PRN Reason: Protocol Last Admin: 08/14/17 11:33 Dose: 100 mls/hr Ibuprofen (Motrin Tab) 600 mg PO BID PRN PRN Reason: Pain, moderate (4-7) Lactobacillus Acidophilus (Bacid Acidophilus) 1 cap PO BID [facility] Last Admin: 08/14/17 09:09 Dose: 1 cap Losartan Potassium (Cozaar) 100 mg PO DAILY [facility] Last Admin: 08/14/17 09:00 Dose: 100 mg Metformin HCl (Glucophage) 1,000 mg PO DAILY [facility] Last Admin: 08/14/17 09:01 Dose: 1,000 mg Morphine Sulfate (Morphine) 2 mg IVP Q6 PRN PRN Reason: Pain, severe (8-10) Last Admin: 08/14/17 11:38 Dose: 2 mg Mycophenolate Mofetil (Cellcept Cap) 1,000 mg PO BID [facility] Last Admin: 08/14/17 09:00 Dose: 1,000 mg Zvgkd-1-Qrbm Ethyl Esters (Lovaza) 2 gm PO DAILY [facility] Last Admin: 08/14/17 09:00 Dose: 2 gm Potassium Chloride (K-Dur 20 Meq Er Tab) 20 meq PO BID [facility] Last Admin: 08/14/17 09:01 Dose: 20 meq Fluticasone/Salmeterol (Advair Diskus 500/50) 1 puff IH BID [facility] Last Admin: 08/14/17 09:00 Dose: Not Given Zolpidem Tartrate (Ambien) 5 mg PO HS PRN PRN Reason: Sleep Last Admin: 08/13/17 23:19 Dose: 5 mg - Labs Labs: 08/14/17 05:30 08/14/17 05:30 - Constitutional Appears: Non-toxic, Chronically Ill - Head Exam Head Exam: NORMOCEPHALIC - Eye Exam Eye Exam: EOMI - ENT Exam ENT Exam: Mucous Membranes Dry - Neck Exam Neck Exam: absent: Lymphadenopathy - Respiratory Exam Respiratory Exam: Decreased Breath Sounds - Cardiovascular Exam Cardiovascular Exam: REGULAR RHYTHM - GI/Abdominal Exam GI & Abdominal Exam: Distended - Rectal Exam Rectal Exam: Deferred - Exam Exam: NORMAL INSPECTION - Extremities Exam Extremities Exam: absent: Pedal Edema - Back Exam Back Exam: absent: CVA tenderness (L) Assessment and Plan (1) Complicated UTI (urinary tract infection) Status: Acute - Assessment and Plan (Free Text) Assessment: await cultures possible po rx upon discharge
[2017-08-15] MEDS: Meropenem 500 MG in Sodium Chloride 0.9% 100 ML IVPB SCH ×3 (00:12→16:00)
[2017-08-15] MEDS: Enoxaparin 40 mg Syringe SC SCH (08:56)
[2017-08-15] MEDS: Omega-3-Acid Ethyl Esters 1 GM Cap PO SCH (08:56)
[2017-08-15] MEDS: Potassium Chloride 20 mEq ER Tab PO SCH ×2 (08:57→16:01)
[2017-08-15] MEDS: Lactobacillus Acidophilus 500 MU Cap PO SCH ×2 (08:57→16:01)
[2017-08-15] MEDS: Fluticasone-Salmeterol 500-50mcg Diskus IH SCH ×2 (08:58→16:00)
[2017-08-15] MEDS: Cholecalciferol 1,000 INTLU TAB PO SCH (08:58)
--- NOTE | 2017-08-15 09:43 | CP.PCM.PN ---
Objective - Vital Signs/Intake and Output Vital Signs (last 24 hours): Temp Pulse Resp BP Pulse Ox 97.9 F 71 20 105/72 98 08/15/17 09:00 08/15/17 09:00 08/15/17 09:00 08/15/17 09:00 08/15/17 09:00 Intake and Output: 08/15/17 08/15/17 06:59 18:59 Intake Total 280 Output Total 800 Balance -520 - Medications Medications: Current Medications Acetaminophen (Tylenol 325mg Tab) 650 mg PO Q4 PRN PRN Reason: Pain, moderate (4-7) Atorvastatin Calcium (Lipitor) 20 mg PO HS [facility] Last Admin: 08/14/17 22:10 Dose: 20 mg Calcium Carbonate (Oscal) 500 mg PO BID [facility] Last Admin: 08/15/17 08:56 Dose: 500 mg Carvedilol (Coreg) 12.5 mg PO Q12 [facility] Last Admin: 08/15/17 08:56 Dose: 12.5 mg Cholecalciferol (Vitamin D) 2,000 intlu PO DAILY [facility] Last Admin: 08/15/17 08:58 Dose: 2,000 intlu Enoxaparin Sodium (Lovenox) 40 mg SC DAILY [facility] PRN Reason: Protocol Last Admin: 08/15/17 08:56 Dose: 40 mg Escitalopram Oxalate (Lexapro) 20 mg PO HS [facility] Last Admin: 08/14/17 22:09 Dose: 20 mg Famotidine (Pepcid) 40 mg PO DAILY [facility] Last Admin: 08/15/17 08:58 Dose: 40 mg Fluticasone Propionate (Flonase) 1 spr NING BID PRN PRN Reason: Allergy symptoms Furosemide (Lasix) 40 mg PO DAILY [facility] Last Admin: 08/15/17 08:57 Dose: 40 mg Glipizide (Glucotrol) 5 mg PO BID [facility] Last Admin: 08/15/17 08:58 Dose: 5 mg Hydroxychloroquine Sulfate (Plaquenil) 200 mg PO BID [facility] Last Admin: 08/15/17 08:57 Dose: 200 mg Meropenem 500 mg/ Sodium (Chloride) 100 mls @ 100 mls/hr IVPB Q8 [facility] PRN Reason: Protocol Last Admin: 08/15/17 08:55 Dose: 100 mls/hr Ibuprofen (Motrin Tab) 600 mg PO BID PRN PRN Reason: Pain, moderate (4-7) Lactobacillus Acidophilus (Bacid Acidophilus) 1 cap PO BID [facility] Last Admin: 08/15/17 08:57 Dose: 1 cap Losartan Potassium (Cozaar) 100 mg PO DAILY [facility] Last Admin: 08/15/17 08:57 Dose: 100 mg Metformin HCl (Glucophage) 1,000 mg PO DAILY [facility] Last Admin: 08/15/17 08:58 Dose: 1,000 mg Morphine Sulfate (Morphine) 2 mg IVP Q6 PRN PRN Reason: Pain, severe (8-10) Last Admin: 08/15/17 05:54 Dose: 2 mg Mycophenolate Mofetil (Cellcept Cap) 1,000 mg PO BID [facility] Last Admin: 08/15/17 08:56 Dose: 1,000 mg Qeeql-1-Yymg Ethyl Esters (Lovaza) 2 gm PO DAILY [facility] Last Admin: 08/15/17 08:56 Dose: 2 gm Potassium Chloride (K-Dur 20 Meq Er Tab) 20 meq PO BID [facility] Last Admin: 08/15/17 08:57 Dose: 20 meq Fluticasone/Salmeterol (Advair Diskus 500/50) 1 puff IH BID [facility] Last Admin: 08/15/17 08:58 Dose: Not Given Zolpidem Tartrate (Ambien) 5 mg PO HS PRN PRN Reason: Sleep Last Admin: 08/14/17 23:26 Dose: 5 mg - Labs Labs: 08/14/17 05:30 08/14/17 05:30 Assessment and Plan (1) Complicated UTI (urinary tract infection) Status: Acute (2) Diabetes Status: Acute (3) Hyperlipidemia Status: Acute (4) Hypertension Status: Acute (5) DVT prophylaxis Status: Acute
--- NOTE | 2017-08-15 14:40 | CP.PCM.DIS ---
Provider - Provider Date of Admission: 08/09/17 13:55 Attending physician: Charli Mcclure MD Time Spent in preparation of Discharge (in minutes): 30 Diagnosis - Discharge Diagnosis (1) Complicated UTI (urinary tract infection) Status: Resolved Comment: -treated with Meropenin. -DC Macrobid 100 mg BID x 10 days (2) Diabetes Status: Chronic (3) Hyperlipidemia Status: Chronic (4) Hypertension Status: Chronic Hospital Course - Lab Results Lab Results: Micro Results 08/12/17 19:57 Urine,[place] Urine Culture - Final MULTIPLE SPECIES. SUGGEST REPEAT SPECIMEN. 08/11/17 09:45 Stool Stool Culture - Final NO SALMONELLA, SHIGELLA OR CAMPYLOBACTER ISOLATED. 08/08/17 18:38 Urine Urine Culture - Final MULTIPLE SPECIES. SUGGEST REPEAT SPECIMEN. Most Recent Lab Values WBC 5.5 K/uL (4.8-10.8) 08/14/17 05:30 RBC 4.58 Mil/uL (3.80-5.20) 08/14/17 05:30 Hgb 13.1 g/dL (12.0-16.0) 08/14/17 05:30 Hct 39.7 % (34.0-47.0) 08/14/17 05:30 MCV 86.6 fl (81.0-99.0) 08/14/17 05:30 MCH 28.5 pg (27.0-31.0) 08/14/17 05:30 MCHC 32.9 g/dL (33.0-37.0) L 08/14/17 05:30 RDW 14.0 % (11.5-14.5) 08/14/17 05:30 Plt Count 198 K/uL (130-400) 08/14/17 05:30 MPV 9.7 fl (7.2-11.7) 08/08/17 19:00 Neut % (Auto) 63.3 % (50.0-75.0) 08/08/17 19:00 Lymph % (Auto) 27.2 % (20.0-40.0) 08/08/17 19:00 Lasalle % (Auto) 8.4 % (0.0-10.0) 08/08/17 19:00 Eos % (Auto) 0.6 % (0.0-4.0) 08/08/17 19:00 Baso % (Auto) 0.5 % (0.0-2.0) 08/08/17 19:00 Neut # 5.7 K/uL (1.8-7.0) 08/08/17 19:00 Lymph # 2.4 K/uL (1.0-4.3) 08/08/17 19:00 Lasalle # 0.7 K/uL (0.0-0.8) 08/08/17 19:00 Eos # 0.1 K/uL (0.0-0.7) 08/08/17 19:00 Baso # 0.0 K/uL (0.0-0.2) 08/08/17 19:00 Sodium 144 mmol/l (132-148) 08/14/17 05:30 Potassium 3.6 MMOL/L (3.6-5.0) 08/14/17 05:30 Chloride 107 mmol/L (98-107) 08/14/17 05:30 Carbon Dioxide 27 mmol/L (22-30) 08/14/17 05:30 Anion Gap 14 (10-20) 08/14/17 05:30 BUN 16 mg/dl (7-17) 08/14/17 05:30 Creatinine 0.7 mg/dl (0.7-1.2) 08/14/17 05:30 Est GFR ( Amer) > 60 08/14/17 05:30 Est GFR (Non-Af Amer) > 60 08/14/17 05:30 POC Glucose (mg/dL) 105 mg/dL (65-110) 08/15/17 11:19 Random Glucose 67 mg/dL (65-105) 08/14/17 05:30 Calcium 9.0 mg/dL (8.4-10.2) 08/14/17 05:30 Total Bilirubin 0.4 mg/dl (0.2-1.3) 08/14/17 05:30 AST 14 U/L (14-36) 08/14/17 05:30 ALT 33 U/L (9-52) 08/14/17 05:30 Alkaline Phosphatase 79 U/L (38-126) 08/14/17 05:30 Total Protein 6.9 G/DL (6.3-8.2) 08/14/17 05:30 Albumin 3.8 g/dL (3.5-5.0) 08/14/17 05:30 Globulin 3.2 gm/dL (2.2-3.9) 08/14/17 05:30 Albumin/Globulin Ratio 1.2 (1.0-2.1) 08/14/17 05:30 Triglycerides 65 mg/DL (0-149) 08/09/17 07:05 Cholesterol 152 mg/dL (0-199) 08/09/17 07:05 LDL Cholesterol Direct 89 mg/dL (0-129) 08/09/17 07:05 HDL Cholesterol 45 MG/DL (30-70) 08/09/17 07:05 Amylase 73 U/L (30-110) 08/08/17 19:00 Lipase 105 U/L (23-300) 08/08/17 19:00 Vitamin B12 387 pg/mL (239-931) 08/09/17 07:05 Thyroxine (T4) 15.0 ug/dl (5.5-11.0) H 08/09/17 07:05 Total T3 1.08 nmol/L (1.49-2.60) L 08/09/17 07:05 TSH 3rd Generation 3.09 mIU/ML (0.46-4.68) 08/09/17 07:05 Urine Color Straw (YELLOW) 08/12/17 19:57 Urine Clarity Cloudy (Clear) 08/12/17 19:57 Urine pH 7.0 (5.0-8.0) 08/12/17 19:57 Ur Specific Lacey 1.008 (1.003-1.030) 08/12/17 19:57 Urine Protein Negative mg/dL (NEGATIVE) 08/12/17 19:57 Urine Glucose (UA) Neg mg/dL (Normal) 08/12/17 19:57 Urine Ketones Negative mg/dL (NEGATIVE) 08/12/17 19:57 Urine Blood Moderate (NEGATIVE) 08/12/17 19:57 Urine Nitrate Positive (NEGATIVE) H 08/12/17 19:57 Urine Bilirubin Negative (NEGATIVE) 08/12/17 19:57 Urine Urobilinogen 0.2-1.0 mg/dL (0.2-1.0) 08/12/17 19:57 Ur Leukocyte Esterase Large Quirino/uL (Negative) 08/12/17 19:57 Urine RBC (Auto) 18 /hpf (0-3) H 17 19:57 Urine Microscopic WBC 90 /hpf (0-5) H 17 19:57 Ur Squamous Epith Cells < 1 /hpf (0-5) 1817 19:57 Calcium Oxalate Crystal Rare /hpf (<OCC) 1817 19:57 Urine Bacteria Few (<OCC) H 08/12/17 19:57 Hyaline Casts 3-5 /hpf (0-2) H 1817 19:57 - Hospital Course Hospital Course: 41 yo F with PMH of HTN, CKD, Hypercholesterolemia, multiple recurrent UTIs and bladder reconstruction (currently with urostomy bag in place), presents to ED with c/o "fecal matter coming out when she urinates." Pt also notes abdominal pain. Symptoms a/w brownish, nonbloody vaginal discharge. Denies fever, chills, dysuria, hematuria, urinary frequency or urgency, vaginal bleeding, chest pain, SOB, n/v/d. multiple admissions with esbl + E coli in 2016 currently afebrile. During admission patient treated with Meropenen w/o complications or medication side effects. Urine cx showed multiple species.suggested to repeat specimen. Id Dr green. patient cleared to be DC with Macrobid x 10 days Discharge Exam - Head Exam Head Exam: ATRAUMATIC, NORMOCEPHALIC - Eye Exam Eye Exam: Normal appearance - ENT Exam ENT Exam: Normal Exam - Respiratory Exam Respiratory Exam: Clear to PA & Lateral. absent: Rales, Rhonchi - Cardiovascular Exam Cardiovascular Exam: REGULAR RHYTHM, +S1, +S2 - GI/Abdominal Exam GI & Abdominal Exam: Normal Bowel Sounds, Soft. absent: Guarding, Rebound Additional comments: RLQ urostomy cdi; draining clear yellow urine - Extremities Exam Extremities exam: normal inspection - Neurological Exam Neurological exam: Alert, Oriented x3 - Psychiatric Exam Psychiatric exam: Normal Affect, Normal Mood - Skin Skin Exam: Intact Discharge Plan - Discharge Medications Prescriptions: Lactobacillus Acidophilus [Bacid Acidophilus] 1 cap PO BID #30 cap Nitrofurantoin Macrocrystals [Macrobid] 100 mg PO Q12 #20 cap - Follow Up Plan Condition: STABLE Disposition: HOME/ ROUTINE Instructions: Urinary Tract Infection in Women (DC) Additional Instructions: Complete all antibiotics. Follow up with primary doctor and urologist in 1 week. Referrals: Ernie Murdock MD [Staff Provider] - Charli Mcclure MD [Staff Provider] -
[2017-08-15 16:19] VITALS: BP 103/74; PULSE 76; RESP 18; TEMP 98.6; O2SAT 97
== END 2017-08-15 19:10 | disposition home or self-care (01) | DRG 690 ==
LOC: H.ER 17:55 → H.ERHOLD 08-09 01:40 → H.MEDSURG1 08-09 02:25 → OBSVTOIN 08-09 13:55 → H.MEDSURG1 08-11 00:06
PROVIDERS: ADMIT Internal Medicine; ATTEND Internal Medicine
DX: N39.0 Urinary tract infection, site not specified (principal); N20.0 Calculus of kidney; M32.9 Systemic lupus erythematosus, unspecified; E11.9 Type 2 diabetes mellitus without complications; I10 Essential (primary) hypertension; E78.5 Hyperlipidemia, unspecified; Z93.6 Other artificial openings of urinary tract status; Z68.35 Body mass index [BMI] 35.0-35.9, adult; E66.9 Obesity, unspecified; F41.9 Anxiety disorder, unspecified; M19.90 Unspecified osteoarthritis, unspecified site; Z87.440 Personal history of urinary (tract) infections; Z87.442 Personal history of urinary calculi; Z79.84 Long term (current) use of oral hypoglycemic drugs; Z90.710 Acquired absence of both cervix and uterus